=== PATIENT | male | born 1950 | race Caucasian/White ===

== ENCOUNTER 2016-11-23 14:20 | Inpatient (IN) | payer MEDICARE ==
[~2016-11-23] VITALS: Ht 177.8 cm; Wt 78.8 kg
[2016-11-23] MEDS ORDERED: SODIUM CHLORIDE FLUSH 10ML SYR IVF ONE (15:30)
[2016-11-23] MEDS ORDERED: SODIUM CHLORIDE 0.9% 1,000ML IVBOLUS ONE (15:30)
[2016-11-23 15:47] LABS: ASPARTATE AMINO TRANSFERASE 43 U/L (15-37); BLOOD UREA NITROGEN 10 mg/dL (7-18)
[2016-11-23 15:53] LABS: IS PT STATUS REG ER OR PRE ER? YES
[2016-11-23] MEDS ORDERED: DILTIAZEM 5 MG/ML, 5ML ONE (16:10)
[2016-11-23] MEDS ORDERED: DILTIAZEM 125 MG in DEXTROSE 5% 100 ML IV SCH (16:28)
[2016-11-23] MEDS ORDERED: DILTIAZEM 5 MG/ML, 5ML IVPush ONE (16:30)
[2016-11-23] MEDS ORDERED: HYDR200T PO (16:56)
[2016-11-23] MEDS ORDERED: MYCO500T PO (16:57)
[2016-11-23] MEDS ORDERED: LEVO75TA5 PO (16:58)
[2016-11-23] MEDS ORDERED: DILT120T3 PO (16:59)
[2016-11-23] MEDS ORDERED: ATOR10TA9 PO (16:59)
[2016-11-23] MEDS ORDERED: LISI-167 PO (17:00)
[2016-11-23] MEDS ORDERED: ONDANSETRON 2MG/ML, 2ML IVP PRN (17:30)
[2016-11-23] MEDS ORDERED: ONDANSETRON ODT 4 MG PO PRN (17:30)
[2016-11-23] MEDS ORDERED: ACETAMINOPHEN 325 MG TABLET PO PRN (17:30)
[2016-11-23] MEDS: DILTIAZEM 125 MG in SODIUM CHLORIDE 0.9% 100 ML IV SCH (18:10)
[2016-11-23] MEDS ORDERED: HEPARIN 5,000 UNITS/ML, 1ML IV ONE (20:00)
[2016-11-23] MEDS ORDERED: HEPARIN 5,000 UNITS/ML, 1ML IV PRN (20:00)
[2016-11-23] MEDS ORDERED: HEPARIN 25,000 UNITS/500ML PMX 500 ML IV PRN (20:00)
[2016-11-23 20:12] VITALS: BP 148/89
[2016-11-23] MEDS: NICOTINE 14MG/24 HR PATCH.TD24 TD SCH (20:38)
[2016-11-23] MEDS: LISINOPRIL 10 MG TABLET PO SCH (20:50)
[2016-11-23] MEDS: ATORVASTATIN 10 MG TABLET PO SCH (20:50)
[2016-11-23] MEDS: HYDROXYCHLOROQUINE 200 MG TABLET PO SCH (20:50)
[2016-11-23 20:53] VITALS: BP 148/89
[2016-11-23] MEDS: CARVEDILOL 3.125 MG TABLET PO SCH (23:20)
[2016-11-24 02:42] VITALS: BP 101/68
[2016-11-24 02:58] LABS: BLOOD UREA NITROGEN 10 mg/dL (7-18)
[2016-11-24 03:23] LABS: ASPARTATE AMINO TRANSFERASE 38 U/L (15-37)
[2016-11-24 08:11] VITALS: BP 116/81
[2016-11-24] MEDS: HYDROXYCHLOROQUINE 200 MG TABLET PO SCH ×2 (08:16→21:27)
[2016-11-24] MEDS: CARVEDILOL 3.125 MG TABLET PO SCH (08:17)
[2016-11-24] MEDS ORDERED: LEVOTHYROXINE 75 MCG TABLET PO SCH (09:00)
[2016-11-24 13:57] VITALS: BP 120/68
[2016-11-24] MEDS: DILTIAZEM 125 MG in SODIUM CHLORIDE 0.9% 100 ML IV SCH (15:18)
[2016-11-24] MEDS ORDERED: MIDAZOLAM 1 MG/ML, 5ML ONE (15:37)
[2016-11-24] MEDS ORDERED: LIDOCAINE 2%, 20ML ONE (15:38)
[2016-11-24] MEDS ORDERED: VERAPAMIL 2.5 MG/ML, 2ML ONE (15:38)
[2016-11-24] MEDS ORDERED: BIVALIRUDIN 250 MG ONE (15:38)
[2016-11-24] MEDS ORDERED: HEPARIN 1,000 UNITS/ML, 10ML ONE (15:38)
[2016-11-24] MEDS ORDERED: FENTANYL PF 100 MCG/2ML ONE (15:38)
[2016-11-24] MEDS ORDERED: RIVAROXABAN 20 MG TABLET PO SCH (17:00)
[2016-11-24 19:37] VITALS: BP 91/60
[2016-11-24] MEDS: NICOTINE 14MG/24 HR PATCH.TD24 TD SCH (20:00)
[2016-11-24] MEDS: LISINOPRIL 10 MG TABLET PO SCH (21:00)
[2016-11-24] MEDS: ATORVASTATIN 10 MG TABLET PO SCH (21:27)
[2016-11-25 03:07] VITALS: BP 123/85
[2016-11-25 05:16] LABS: BLOOD UREA NITROGEN 12 mg/dL (7-18)
[2016-11-25] MEDS ORDERED: LEVOTHYROXINE 75 MCG TABLET PO SCH (06:00)
[2016-11-25] MEDS ORDERED: CARVEDILOL 6.25 MG TABLET PO SCH (06:00)
[2016-11-25] MEDS: HYDROXYCHLOROQUINE 200 MG TABLET PO SCH (07:48)
[2016-11-25 08:10] VITALS: BP 133/85
[2016-11-25] MEDS ORDERED: FOLIC ACID 1 MG TABLET PO SCH (09:00)
[2016-11-25] MEDS ORDERED: THIAMINE 100MG TABLET PO SCH (09:00)
[2016-11-25] MEDS ORDERED: LISINOPRIL 5 MG TABLET PO SCH (09:38)
[2016-11-25] MEDS ORDERED: LISI5TAB7 PO (09:50)
[2016-11-25] MEDS ORDERED: CARV6.2512 PO (09:50)
[2016-11-25] MEDS ORDERED: RIVA20TA PO (09:50)
[2016-11-25] MEDS ORDERED: FOLI-17 PO (09:50)
[2016-11-25] MEDS ORDERED: THIA100T6 PO (09:50)
[2016-11-25] MEDS ORDERED: SPIR25TA PO (09:50)
[2016-11-26] MEDS ORDERED: SPIRONOLACTONE 25 MG TABLET PO SCH (09:00)
== END 2016-11-25 11:25 | disposition home or self-care (01) | DRG 287 ==
LOC: ED 16:37 → EDIP 17:09 → 5SO 18:49 → DCLOUNGE 11-25 11:07
PROVIDERS: ADMIT Internal Medicine; ATTEND Internal Medicine
PROC: 4A023N7 Measurement of Cardiac Sampling and Pressure, Left Heart, Percutaneous Approach (ICD-10-PCS; principal; 2016-11-24)
PROC: B2111ZZ Fluoroscopy of Multiple Coronary Arteries using Low Osmolar Contrast (ICD-10-PCS; 2016-11-24)
PROC: B2151ZZ Fluoroscopy of Left Heart using Low Osmolar Contrast (ICD-10-PCS; 2016-11-24)
DX: I48.0 Paroxysmal atrial fibrillation (principal); J98.11 Atelectasis; D68.69 Other thrombophilia; E44.1 Mild protein-calorie malnutrition; I42.9 Cardiomyopathy, unspecified; I48.92 Unspecified atrial flutter; I11.9 Hypertensive heart disease without heart failure; E78.5 Hyperlipidemia, unspecified; D75.89 Other specified diseases of blood and blood-forming organs; R73.9 Hyperglycemia, unspecified; D53.9 Nutritional anemia, unspecified; E03.9 Hypothyroidism, unspecified; E78.00 Pure hypercholesterolemia, unspecified; F10.10 Alcohol abuse, uncomplicated; F17.200 Nicotine dependence, unspecified, uncomplicated; I25.10 Atherosclerotic heart disease of native coronary artery without angina pectoris; M32.9 Systemic lupus erythematosus, unspecified; Z79.01 Long term (current) use of anticoagulants; Z79.899 Other long term (current) drug therapy; Z82.3 Family history of stroke; Z82.49 Family history of ischemic heart disease and other diseases of the circulatory system
CPT/HCPCS: 36415; 71010; 80048; 80053; 80061; 80307; 82040; 82607; 82746; 83036; 83735; 83880; 84439; 84443; 84484; 85025; 85520; 85610; 85730; 93005; 93458; 96374; 96375; C1894; J0583; J1644; J2250; J3010; J3490; J7030; J7517; Q9967

== ENCOUNTER 2016-12-01 12:57 | Inpatient (IN) | payer MEDICARE ==
[~2016-12-01] VITALS: Ht 177.8 cm; Wt 85.4 kg
[~2016-12-01 12:57] MED LIST: ATOR10TA9 PO; CARV6.2512 PO; DILT120T3 PO; FOLI-17 PO; HYDR200T PO; LEVO75TA5 PO; LISI-167 PO; LISI5TAB7 PO; MYCO500T PO; RIVA20TA PO; SPIR25TA PO; THIA100T6 PO
[2016-12-01] MEDS ORDERED: DILTIAZEM 125 MG in DEXTROSE 5% 100 ML IV SCH (13:34)
[2016-12-01] MEDS ORDERED: DILTIAZEM 5 MG/ML, 5ML ONE (13:48)
[2016-12-01] MEDS ORDERED: SODIUM CHLORIDE 0.9% 1,000ML IVBOLUS ONE ×2 (14:00→15:00)
[2016-12-01] MEDS ORDERED: SODIUM CHLORIDE FLUSH 10ML SYR IVF ONE ×2 (14:00→15:00)
[2016-12-01] MEDS ORDERED: DILTIAZEM 5 MG/ML, 5ML IV ONE (14:00)
[2016-12-01 14:08] LABS: BLOOD UREA NITROGEN 21 mg/dL (7-18)
[2016-12-01 14:13] LABS: IS PT STATUS REG ER OR PRE ER? YES
[2016-12-01] MEDS ORDERED: SODIUM CHLORIDE 0.9% 1,000 ML IV SCH (15:44)
[2016-12-01] MEDS ORDERED: ONDANSETRON 2MG/ML, 2ML IVPush PRN (16:00)
[2016-12-01] MEDS ORDERED: ACETAMINOPHEN 325 MG TABLET PO PRN (16:00)
[2016-12-01] MEDS ORDERED: ZOLPIDEM 5MG TABLET PO PRN (16:00)
[2016-12-01] MEDS ORDERED: LORazepam 2 MG/ML, 1ML IVPush ONE (16:11)
[2016-12-01] MEDS ORDERED: LORazepam 2 MG/ML, 1ML ONE (16:12)
[2016-12-01 17:00] LABS: IS PT STATUS REG ER OR PRE ER? NO
[2016-12-01 17:09] VITALS: BP 124/90
[2016-12-01 19:23] VITALS: BP 109/84
[2016-12-01] MEDS: DIGOXIN 0.25 MG/ML, 2ML IVPush SCH (19:26)
[2016-12-01] MEDS ORDERED: ATORVASTATIN 10 MG TABLET PO SCH (21:00)
[2016-12-01] MEDS: RIVAROXABAN 20 MG TABLET PO SCH (21:16)
[2016-12-01 22:57] LABS: IS PT STATUS REG ER OR PRE ER? NO
[2016-12-02] MEDS: CARVEDILOL 6.25 MG TABLET PO SCH ×2 (01:04→08:15)
[2016-12-02] MEDS: DIGOXIN 0.25 MG/ML, 2ML IVPush SCH ×3 (01:05→13:39)
[2016-12-02 01:09] VITALS: BP 132/90
[2016-12-02] MEDS ORDERED: FUROSEMIDE 40 MG/4 ML IV STA (04:01)
[2016-12-02] MEDS ORDERED: FUROSEMIDE 20 MG/2 ML ONE (04:04)
[2016-12-02] MEDS ORDERED: FUROSEMIDE 100 MG/10 ML IV ONE (05:00)
[2016-12-02 05:45] LABS: ASPARTATE AMINO TRANSFERASE 85 U/L (15-37); BLOOD UREA NITROGEN 17 mg/dL (7-18)
[2016-12-02 08:11] VITALS: BP 154/119
[2016-12-02] MEDS: THIAMINE 100MG TABLET PO SCH (08:15)
[2016-12-02] MEDS: FOLIC ACID 1 MG TABLET PO SCH (08:15)
[2016-12-02] MEDS ORDERED: PROPOFOL 10 MG/ML, 20ML ONE (08:50)
[2016-12-02] MEDS ORDERED: MAGNESIUM SULFATE PMX 2GM/50ML 50 ML IV ONE ×2 (09:00→09:30)
[2016-12-02] MEDS: LISINOPRIL 5 MG TABLET PO SCH (11:31)
[2016-12-02 13:35] VITALS: BP 146/99
[2016-12-02] MEDS: SPIRONOLACTONE 25 MG TABLET PO SCH (15:09)
[2016-12-02] MEDS ORDERED: RIVAROXABAN 20 MG TABLET PO SCH (17:00)
[2016-12-02] MEDS: CARVEDILOL 12.5 MG TABLET PO SCH (17:31)
[2016-12-02] MEDS: RIVAROXABAN 20 MG TABLET PO SCH (17:31)
[2016-12-02 19:01] VITALS: BP 144/86
[2016-12-02] MEDS ORDERED: ATORVASTATIN 20 MG TABLET PO SCH (21:00)
[2016-12-03 02:46] VITALS: BP 151/99
[2016-12-03] MEDS: CARVEDILOL 12.5 MG TABLET PO SCH (05:37)
[2016-12-03 05:50] LABS: ASPARTATE AMINO TRANSFERASE 49 U/L (15-37); BLOOD UREA NITROGEN 14 mg/dL (7-18)
[2016-12-03 07:10] VITALS: BP 143/89
[2016-12-03] MEDS: SPIRONOLACTONE 25 MG TABLET PO SCH (08:03)
[2016-12-03] MEDS: FOLIC ACID 1 MG TABLET PO SCH (08:03)
[2016-12-03] MEDS: LISINOPRIL 5 MG TABLET PO SCH (08:03)
[2016-12-03] MEDS: THIAMINE 100MG TABLET PO SCH (08:03)
[2016-12-03] MEDS ORDERED: LISI5TAB7 PO (11:57)
[2016-12-04] MEDS ORDERED: LISINOPRIL 10 MG TABLET PO SCH (09:00)
== END 2016-12-03 12:57 | disposition home or self-care (01) | DRG 308 ==
LOC: ED 15:02 → EDIP 15:03 → ED 15:20 → 5SO 16:43
PROC: HZ34ZZZ Individual Counseling for Substance Abuse Treatment, Interpersonal (ICD-10-PCS; 2016-12-01)
PROC: HZ2ZZZZ Detoxification Services for Substance Abuse Treatment (ICD-10-PCS; 2016-12-01)
PROC: 5A2204Z Restoration of Cardiac Rhythm, Single (ICD-10-PCS; principal; 2016-12-02)
PROC: B246ZZ4 Ultrasonography of Right and Left Heart, Transesophageal (ICD-10-PCS; 2016-12-02)
DX: I48.0 Paroxysmal atrial fibrillation (principal); I50.43 Acute on chronic combined systolic (congestive) and diastolic (congestive) heart failure; D68.69 Other thrombophilia; E44.1 Mild protein-calorie malnutrition; I48.92 Unspecified atrial flutter; I42.9 Cardiomyopathy, unspecified; D75.89 Other specified diseases of blood and blood-forming organs; E03.9 Hypothyroidism, unspecified; E78.00 Pure hypercholesterolemia, unspecified; E86.0 Dehydration; I44.7 Left bundle-branch block, unspecified; E78.5 Hyperlipidemia, unspecified; F10.20 Alcohol dependence, uncomplicated; F17.210 Nicotine dependence, cigarettes, uncomplicated; I10 Essential (primary) hypertension; I25.10 Atherosclerotic heart disease of native coronary artery without angina pectoris; I73.9 Peripheral vascular disease, unspecified; I95.0 Idiopathic hypotension; J44.9 Chronic obstructive pulmonary disease, unspecified; M32.9 Systemic lupus erythematosus, unspecified; Z79.899 Other long term (current) drug therapy; Z82.3 Family history of stroke; Z82.49 Family history of ischemic heart disease and other diseases of the circulatory system; Z90.49 Acquired absence of other specified parts of digestive tract; Z79.01 Long term (current) use of anticoagulants; Z68.27 Body mass index [BMI] 27.0-27.9, adult; Z71.41 Alcohol abuse counseling and surveillance of alcoholic
CPT/HCPCS: 36415; 71010; 80048; 80053; 82040; 83735; 83880; 84100; 84145; 84439; 84443; 84484; 85025; 87324; 93005; 93312; 93321; 93325; 96361; 96374; 96375; J1940; J2704; J1160; J2060; J3475; J7030